=== PATIENT | female | born 1965 | race Two or more races ===

== ENCOUNTER 2020-03-13 03:49 | Emergency (ER) | payer OTHER ==
[~2020-03-13] VITALS: Ht 152.4 cm; Wt 81.6 kg
[2020-03-13] MEDS ORDERED: PYRIDIUM DS200 MG PO (08:13)
[2020-03-13] MEDS ORDERED: CIPRO500 MG PO (08:13)
== END 2020-03-13 08:38 | disposition home or self-care (01) ==
LOC: ER 03:49
DX: N30.81 Other cystitis with hematuria (principal); B96.29 Other Escherichia coli [E. coli] as the cause of diseases classified elsewhere; R10.31 Right lower quadrant pain

== ENCOUNTER 2021-01-18 09:23 | Outpatient (CLI) | payer OTHER ==
[~2021-01-18 09:23] MED LIST: CIPRO500 MG PO; PYRIDIUM DS200 MG PO
== END 2021-01-18 09:26 | disposition home or self-care (01) ==
LOC: SONOGRAMA 09:23
PROVIDERS: ATTEND Pathology Anatomic Pathology & Clinical Pathology
DX: E04.1 Nontoxic single thyroid nodule (principal)

== ENCOUNTER 2024-04-26 10:08 | Outpatient (CLI) | payer OTHER | END 2024-04-26 10:25 | disposition home or self-care (01) | LOC: SONOGRAMA 10:08 | PROVIDERS: ATTEND Pathology Anatomic Pathology & Clinical Pathology | DX: E07.9 Disorder of thyroid, unspecified (principal); D44.0 Neoplasm of uncertain behavior of thyroid gland ==

== ENCOUNTER 2024-06-03 10:29 | Outpatient (CLI) | payer OTHER | END 2024-06-03 10:33 | disposition home or self-care (01) | LOC: SONOGRAMA 10:29 | PROVIDERS: ATTEND Pathology Anatomic Pathology & Clinical Pathology | DX: D44.0 Neoplasm of uncertain behavior of thyroid gland (principal); E04.1 Nontoxic single thyroid nodule ==